=== PATIENT | male | born 1955 | race Caucasian/White ===

== ENCOUNTER 2024-05-03 02:34 | Inpatient (IN) ==
[2024-05-03] MEDS ORDERED: IOPAMIDOL 100 ML BOTTLE IV ONE (02:35)
[2024-05-03] MEDS: 0.9 % SODIUM CHLORIDE 1,000 ML IV SCH (02:55)
[2024-05-03] MEDS: IPRATROPIUM/ALBUTEROL 3 ML AMPUL.NEB NEB ONE (02:55)
[2024-05-03] MEDS: ALBUTEROL SULFATE 2.5 MG/3 ML NEBULIZER NEB ONE ×2 (02:55→04:29)
[2024-05-03 03:05] LABS: Basophils # (Auto) 0.02 K/mcL (0.00-0.30); Basophils % (Auto) 0.1 % (0.0-2.0); Eosinophils # (Auto) 0.06 K/mcL (0.00-0.70); Eosinophils % (Auto) 0.3 % (0.0-7.0); Hematocrit 37.3 % (40.1-51.0); Hemoglobin 12.8 g/dL (13.7-17.5); Lymphocytes # (Auto) 0.95 K/mcL (1.50-4.80); Lymphocytes % (Auto) 5.4 % (15.5-49.0); Mean Cell Volume 91.2 fL (80.0-100.0); Mean Corpuscular HGB Conc 34.3 g/dL (31.0-36.0); Mean Platelet Volume 9.6 fL (8.8-12.5); Monocytes # (Auto) 1.25 K/mcL (0.10-0.90); Monocytes % (Auto) 7.2 % (1.0-12.0); Neutrophils % (Auto) 86.8 % (38.0-78.0); Platelet Count 522 K/mcL (140-440); RBC 4.09 M/mcL (4.63-6.08); WBC 17.5 K/mcL (4.5-11.0)
[2024-05-03 03:32] LABS: ALT/SGPT 65 U/L (<40); AST/SGOT 50 U/L (<40); Albumin 3.6 gm/dL (3.2-5.2); Alkaline Phosphatase 197 U/L (39-117); Bilirubin,Total 1.3 mg/dL (0.1-1.0); Blood Urea Nitrogen 16 mg/dL (8-23); Calcium 9.8 mg/dL (8.6-10.4); Carbon Dioxide 22 mmol/L (22-30); Chloride 98 mmol/L (96-108); Globulin 3.6 gm/dL (2.2-3.7); Glomerular Filtration Rate 91; Glucose 187 mg/dL (70-105); Potassium 3.9 mmol/L (3.3-5.1); Sodium 137 mmol/L (133-145)
[2024-05-03 03:40] LABS: ABG Methemoglobin 0 % (0.4-1.5); Total Hemoglobin 13.1 gm/Dl (13.5-16.5); VBG Base Excess 0 (-2-3); VBG HCO3 24.7 mmol/L (24.0-28.0); VBG Oxygen Saturation 55.8 % (40.0-70.0); VBG PCO2 41.8 mmHg (41.0-51.0); VBG PH 7.39 U (7.32-7.42); VBG PO2 29.7 mmHg (25.0-40.0)
[2024-05-03 05:34] LABS: Appearance,Urine CLEAR (Clear); Color,Urine AMBER; Glucose,Urine (UA) Negative (Negative); Ketones,Urine 20 mg/dL (Negative); Leukocyte Esterase,Urine Negative /uL (Negative); Mucus,Urine FEW /hpf; Nitrate,Urine Negative (Negative); Protein,Urine 100 mg/dL (Negative); Specific Gravity,Urine 1.025 (1.000-1.035); Urine Blood 0.03 mg/dL (Negative); Urine RBC 3 /hpf (0-3); Urine Squamous Epithelial Cell 0 /hpf (0-4); Urine WBC 1 /hpf (0-4)
[2024-05-03] MEDS: methylPREDNISolone SOD SUCC 125 MG/2 ML VIAL IV ONE (05:47)
[2024-05-03] MEDS: LEVOFLOXACIN 750 MG/150 ML BAG IV ONE (09:50)
[2024-05-03 14:14] LABS: Lymphocytes % 4 % (15-49); Monocytes % (Manual) 7 % (1-12); Platelet Estimate NORMAL (Normal); RBC Morphology NORMAL (Normal); Segmented Neutrophils % 89 % (38-78)
[2024-05-03] MEDS ORDERED: POTASSIUM CHLORIDE 40 MEQ in DEXTROSE 5% IN WATER 500 ML IV PRN (14:32)
[2024-05-03] MEDS ORDERED: ONDANSETRON 4 MG/2 ML VIAL IV PRN (14:32)
[2024-05-03] MEDS ORDERED: METOCLOPRAMIDE 10 MG/2 ML VIAL IV PRN (14:32)
[2024-05-03] MEDS ORDERED: MAGNESIUM SULFATE 2 GM/50 ML BAG IV PRN (14:32)
[2024-05-03] MEDS ORDERED: POTASSIUM CHLORIDE 20 MEQ TABLET PO PRN ×2 (14:32)
[2024-05-03] MEDS ORDERED: POLYETHYLENE GLYCOL 3350 17 GM PACKET PO PRN (14:32)
[2024-05-03] MEDS ORDERED: SENNOSIDES 1 TABLET PO PRN (14:32)
[2024-05-03] MEDS: AZITHROMYCIN 500 MG in 0.9 % SODIUM CHLORIDE 250 ML IV SCH (15:46)
[2024-05-03] MEDS: 0.9 % SODIUM CHLORIDE 10 ML SYRINGE IV SCH (15:46)
[2024-05-03] MEDS: cefTRIAXone 1 GM VIAL IV SCH (15:46)
[2024-05-03] MEDS: ACETAMINOPHEN 325 MG TABLET PO PRN (18:56)
[2024-05-03] MEDS: CARVEDILOL 12.5 MG TABLET PO SCH (21:11)
[2024-05-03] MEDS: DOCUSATE SODIUM 100 MG CAPSULE PO SCH (21:11)
[2024-05-03] MEDS: DULoxetine 30 MG CAPSULE PO ONE (21:11)
[2024-05-03] MEDS: OMEPRAZOLE 20 MG CAPSULE PO SCH (21:11)
[2024-05-04] MEDS: IPRATROPIUM/ALBUTEROL 3 ML AMPUL.NEB NEB PRN (05:41)
[2024-05-04 06:19] LABS: Basophils # (Auto) 0.01 K/mcL (0.00-0.30); Basophils % (Auto) 0.1 % (0.0-2.0); Eosinophils # (Auto) 0 K/mcL (0.00-0.70); Eosinophils % (Auto) 0 % (0.0-7.0); Hematocrit 35.4 % (40.1-51.0); Hemoglobin 12.1 g/dL (13.7-17.5); Lymphocytes # (Auto) 0.88 K/mcL (1.50-4.80); Lymphocytes % (Auto) 7.5 % (15.5-49.0); Mean Cell Volume 91.7 fL (80.0-100.0); Mean Corpuscular HGB Conc 34.2 g/dL (31.0-36.0); Mean Platelet Volume 9.3 fL (8.8-12.5); Monocytes # (Auto) 1.03 K/mcL (0.10-0.90); Monocytes % (Auto) 8.8 % (1.0-12.0); Neutrophils % (Auto) 83.3 % (38.0-78.0); Platelet Count 615 K/mcL (140-440); RBC 3.86 M/mcL (4.63-6.08); Red Cell Distribution Width 12.2 % (11.5-14.5); WBC 11.7 K/mcL (4.5-11.0)
[2024-05-04 06:44] LABS: ALT/SGPT 109 U/L (<40); AST/SGOT 90 U/L (<40); Albumin 3.7 gm/dL (3.2-5.2); Albumin/Globulin Ratio 1.2 (1.0-2.3); Alkaline Phosphatase 182 U/L (39-117); Bilirubin,Direct 0.3 mg/dL (<0.3); Bilirubin,Total 0.5 mg/dL (0.1-1.0); Blood Urea Nitrogen 23 mg/dL (8-23); Carbon Dioxide 25 mmol/L (22-30); Chloride 103 mmol/L (96-108); Glomerular Filtration Rate 91; Glucose 191 mg/dL (70-105); Lactate Dehydrogenase 189 U/L (135-225); Phosphorous 3.1 mg/dL (2.5-4.5); Potassium 3.9 mmol/L (3.3-5.1); Sodium 142 mmol/L (133-145); Triglycerides 96 mg/dL (<150); Uric Acid 4.9 mg/dL (2.5-8.0)
[2024-05-04] MEDS: DULoxetine 30 MG CAPSULE PO SCH (08:40)
[2024-05-04] MEDS: ARIPIPRAZOLE 5 MG TABLET PO SCH (08:40)
[2024-05-04] MEDS: ATORVASTATIN 20 MG TABLET PO SCH (08:41)
[2024-05-04] MEDS: ENOXAPARIN 40 MG/0.4 ML SYRINGE SQ SCH (08:42)
[2024-05-04] MEDS: guaiFENesin/CODEINE 10 ML UDC PO PRN (10:54)
[2024-05-05 06:59] LABS: Basophils # (Auto) 0.02 K/mcL (0.00-0.30); Basophils % (Auto) 0.2 % (0.0-2.0); Eosinophils # (Auto) 0.09 K/mcL (0.00-0.70); Eosinophils % (Auto) 0.8 % (0.0-7.0); Hemoglobin 12.1 g/dL (13.7-17.5); Lymphocytes # (Auto) 0.87 K/mcL (1.50-4.80); Lymphocytes % (Auto) 7.8 % (15.5-49.0); Mean Cell Volume 92.8 fL (80.0-100.0); Mean Corpuscular HGB Conc 33.6 g/dL (31.0-36.0); Mean Platelet Volume 9.5 fL (8.8-12.5); Monocytes # (Auto) 0.85 K/mcL (0.10-0.90); Monocytes % (Auto) 7.7 % (1.0-12.0); Platelet Count 577 K/mcL (140-440); RBC 3.88 M/mcL (4.63-6.08); Red Cell Distribution Width 12.3 % (11.5-14.5); WBC 11.1 K/mcL (4.5-11.0)
[2024-05-05 07:26] LABS: ALT/SGPT 153 U/L (<40); AST/SGOT 91 U/L (<40); Albumin 3.4 gm/dL (3.2-5.2); Albumin/Globulin Ratio 1.1 (1.0-2.3); Alkaline Phosphatase 158 U/L (39-117); Bilirubin,Direct < 0.2 mg/dL (0-0.3); Bilirubin,Total 0.4 mg/dL (0.1-1.0); Blood Urea Nitrogen 21 mg/dL (8-23); C-Reactive Protein 7.86 mg/dL (0.03-0.80); Calcium 9.5 mg/dL (8.6-10.4); Carbon Dioxide 25 mmol/L (22-30); Chloride 102 mmol/L (96-108); Globulin 3.1 gm/dL (2.2-3.7); Glomerular Filtration Rate 96; Glucose 154 mg/dL (70-105); Lactate Dehydrogenase 256 U/L (135-225); Phosphorous 3.2 mg/dL (2.5-4.5); Sodium 141 mmol/L (133-145); Triglycerides 142 mg/dL (<150); Uric Acid 4.4 mg/dL (2.5-8.0)
== END 2024-05-05 12:00 | disposition home or self-care (01) | DRG 871 ==
LOC: ED 02:34 → MEDSUR 14:19
PROVIDERS: ADMIT Internal Medicine; ATTEND Internal Medicine